=== PATIENT | male | born 1960 | race Caucasian/White ===

== ENCOUNTER 2020-02-10 12:54 | Emergency (ER) | payer MEDICARE, MEDICAID, SELFPAY ==
[2020-02-10 12:55] VITALS: BP 141/83; PULSE 92; RESP 18; TEMP 36.8; O2SAT 95; BMI 31.0
--- NOTE | 2020-02-10 13:10 | XR_ITS ---
PROCEDURE: XR PELVIS 1-2V CLINICAL INDICATION: R.hip/pelvic pain COMPARISON: No exams were available for comparison TECHNIQUE: XR Pelvis AP View FINDINGS: No fracture or dislocation is evident. No significant degenerative change other than mild sclerotic change of the SI joints. No lytic or blastic change. IMPRESSION: No acute findings. Dictated by: Dr. Jimmy Lind MD 02/10/2020 13:[address] Jimmy Lind MD in [place] 02/10/2020 13:46
--- NOTE | 2020-02-10 13:10 | XR_ITS ---
PROCEDURE: XR HIP RT 2-3V W/PELVIS CLINICAL INDICATION: injury COMPARISON: XR PELVIS 1-2V from 02/10/2020 FINDINGS: No fracture or dislocation is evident. There is mild sclerosis of the SI joints.. No lytic or blastic change. Unremarkable soft tissues. IMPRESSION: Mild bilateral sacroiliitis no acute fracture seen Dictated by: Dr. Jimmy Lind MD 02/10/2020 13:[address] Jimmy Lind MD in [place] 02/10/2020 13:46
--- NOTE | 2020-02-10 13:11 | HMH.EDGENADL ---
ED Disposition Clinical Impression: Trochanteric bursitis of right hip Disposition: Home, Self-Care Condition on Discharge: Good Instructions: DI for Acute Pain -- Adult Prescriptions: Cyclobenzaprine HCl [Cyclobenzaprine 5mg Tab] 5 mg PO Q8HP PRN #30 tab PRN Reason: pain/spasm Transmission Status: P[facility] to [id number] Ketorolac Tromethamine [Toradol 10mg tablet] 10 mg PO Q6H 5 Days #20 tab Transmission Status: Pending to [id number] Referrals: Adelso Macias II [Primary Care Provider] - - Critical Care Critical Care Time: No Attestation: On 02/10/20, the high probability of a clinically significant, sudden or life threatening deterioration of the following system(s) required my full and direct attention, intervention and personal management. The time I documented below is in addition to time spent performing reported procedures but includes the following listed in this critical care notation. Medical Decision Making - Medical Records Medical records reviewed: Yes: I reviewed the patient's medical records. - Prem Inquiry Pt receiving controlled substance: No Vital Signs: 02/10/20 12:55 Temperature 98.2 F Temperature Source Oral Pulse Rate [Right] 92 H Respiratory Rate 18 Blood Pressure [Right Arm] 141/83 H Blood Pressure Mean [Right Arm] 102 02 Sat by Pulse Oximetry 95 Orders (Tests/Meds): ED MEDICATIONS Discontinued Medications Generic Name Dose Route Start Last Admin Trade Name Freq PRN Reason Stop Dose Admin Ketorolac Tromethamine 60 mg 02/10/20 13:09 02/10/20 13:16 Toradol 60mg/2ml Vial IM 02/10/20 13:10 60 mg ONCE ONE Administration Orphenadrine Citrate 60 mg 02/10/20 13:09 02/10/20 13:15 Norflex 60mg/2ml Vial IM 02/10/20 13:10 60 mg ONCE ONE Administration ORDERS Category Date Time Status Pelvis XR 1-2 views [XR pelvis 1-2V] Stat Exams 02/10/20 13:10 Ordered XR hip RT 2-3V w/pelvis Stat Exams 02/10/20 13:10 Ordered - Radiology Data #1 Image(s): Pelvis, Hip Image Reviewed: Yes I reviewed the patient's radiology image Preliminary Findings: Normal/NAD General Adult HPI - General Chief complaint: PAIN Stated complaint: right hip pain Time Seen by Provider: 02/10/20 13:08 Mode of Arrival: Ambulatory Source of Information: Patient Limitations: No Limitations Description of Symptoms (Recalled from ER Triage Doc. by RN): C/O right hip pain x5 days after mowing hay and it was bouncing his aroun a lot. - History of Present Illness HPI narrative: This is a 59-year-old male that presents with 5-day history of right hip pain. Pain began after riding tractor for a prolonged period of time while cutting hay. Pain is sharp and does not radiate. Pain is worse whenever he first stands to ambulate and after ambulating a few feet improves. Pain is rated at 7 out of 10 in intensity at its worse. No other lower extremity edema. No calf pain. Patient also denies any chest pain or shortness of breath. No obvious injury or trauma noted by the patient. - Related Data Home Medications Medication Instructions Recorded Confirmed Atorvastatin Calcium [Lipitor 20mg 20 mg PO DAILY 09/16/18 09/16/18 Tab] Lisinopril/Hydrochlorothiazide 1 tab PO DAILY 09/16/18 09/16/18 [Lisinopril-Hctz 20-25 mg Tab] Metformin HCl [Metformin 1000mg 1,000 mg PO DAILY 09/16/18 09/16/18 Tablets] Oxycodone HCl/Acetaminophen 1 tab PO TIDP PRN 09/16/18 09/16/18 [Percocet 7.5/325mg tablet] Previous Rx's Medication Instructions Recorded Azithromycin [Zithromax 250mg 250 mg PO DIRECTED #6 tab 09/16/18 tab] Benzonatate [Tessalon Perle 100mg 100 mg PO TID #30 cap 09/16/18 Cap] Cyclobenzaprine HCl 5 mg PO Q8HP PRN #30 tab 02/10/20 [Cyclobenzaprine 5mg Tab] Ketorolac Tromethamine [Toradol 10 mg PO Q6H 5 Days #20 tab 02/10/20 10mg tablet] Allergies Allergy/AdvReac Type Severity Reaction Statu
[2020-02-10 13:37] VITALS: BP 148/87; PULSE 90; RESP 18; O2SAT 97
[2020-02-10 13:41] VITALS: BP 150/87; PULSE 81; RESP 17; TEMP 36.6; O2SAT 97
== END 2020-02-10 13:42 | disposition home or self-care (01) ==
PROVIDERS: Emergency Provider Emergency Medicine; PCP Family Medicine
DX: M70.61 Trochanteric bursitis, right hip (principal); I10 Essential (primary) hypertension; F17.290 Nicotine dependence, other tobacco product, uncomplicated; E11.9 Type 2 diabetes mellitus without complications; Z88.0 Allergy status to penicillin; Z79.84 Long term (current) use of oral hypoglycemic drugs
CPT/HCPCS: 72170; 73502; 96372; 99282

== ENCOUNTER 2020-08-02 15:09 | Emergency (ER) | payer MEDICARE, MEDICAID, SELFPAY ==
[2020-08-02 15:20] VITALS: BP 164/85; PULSE 80; RESP 14; TEMP 38.5; O2SAT 97; BMI 31.0
--- NOTE | 2020-08-02 15:41 | HMH.EDUTC ---
[facility] [facility] [place] Clinical Impression: Viral syndrome Sinusitis Qualifiers: Sinusitis location: unspecified location Chronicity: acute Recurrence: non-recurrent Qualified Code(s): J01.90 - Acute sinusitis, unspecified Disposition: Home, Self-Care Condition on Discharge: Good Instructions: DI for Sinusitis, Preventing the Spread of Coronavirus Discharge Instructions Additional Instructions: Drink plenty of fluids. Take tylenol for pain or fever. Return if you begin to have difficulty breathing. Follow up with your regular doctor. GO TO THE ER FOR ANY WORSENING SYMPTOMS Prescriptions: Azithromycin [Z-Andrea 250mg Tab*] 250 mg PO UD DOSE PK #6 tab Transmission Status: [id number] Referrals: Jaron Paz [Primary Care Provider] - Time of Disposition: 16:36 Medical Decision Making - Medical Records Medical records reviewed: No: I reviewed the patient's medical records. - Prem Inquiry Pt receiving controlled substance: No Vital Signs: 08/02/20 15:20 08/02/20 16:41 Temperature 101.3 F H 101.3 F H Temperature Source Oral Pulse Rate 80 Pulse Rate [Right Brachial] 80 Respiratory Rate 14 14 Blood Pressure 164/85 H Blood Pressure [Right Arm] 164/85 H Blood Pressure Mean [Right Arm] 111 Blood Pressure Source [Right Arm] Automatic Cuff Blood Pressure Position [Right Arm] Sitting 02 Sat by Pulse Oximetry 97 Oxygen Delivery Method Room Air - Lab Data Lab Results 08/02/20 15:42: Influenza Type A Ag Negative, Influenza Type B Ag Negative Orders (Tests/Meds): ED MEDICATIONS Discontinued Medications Generic Name Dose Route Start Last Admin Trade Name Michael PRN Reason Stop Dose Admin Acetaminophen 1,000 mg 08/02/20 15:42 08/02/20 15:50 Acetaminophen 500mg Tab PO 08/02/20 15:43 1,000 mg ONCE ONE Administration [facility] [facility] [place] - General Stated complaint: Achy, sore throat, cough(exposure) Time Seen by Provider: 08/02/20 15:41 - History of Present Illness Provider Complaint: He c/o 4 days of feeling bad, having a cough and having body aches. He came in for a covid-19 test. - Related Data Home Medications Medication Instructions Recorded Confirmed Atorvastatin Calcium [Lipitor 20mg 20 mg PO DAILY 09/16/18 09/16/18 Tab] Lisinopril/Hydrochlorothiazide 1 tab PO DAILY 09/16/18 09/16/18 [Lisinopril-Hctz 20-25 mg Tab] Metformin HCl [Metformin 1000mg 1,000 mg PO DAILY 09/16/18 09/16/18 Tablets] Oxycodone HCl/Acetaminophen 1 tab PO TIDP PRN 09/16/18 09/16/18 [Percocet 7.5/325mg tablet] Previous Rx's Medication Instructions Recorded Azithromycin [Zithromax 250mg 250 mg PO DIRECTED #6 tab 09/16/18 tab] Benzonatate [Tessalon Perle 100mg 100 mg PO TID #30 cap 09/16/18 Cap] Cyclobenzaprine HCl 5 mg PO Q8HP PRN #30 tab 02/10/20 [Cyclobenzaprine 5mg Tab] Ketorolac Tromethamine [Toradol 10 mg PO Q6H 5 Days #20 tab 02/10/20 10mg tablet] Azithromycin [Z-Andrea 250mg Tab*] 250 mg PO UD DOSE PK #6 tab 08/02/20 Allergies Allergy/AdvReac Type Severity Reaction Status Date / Time Penicillins Allergy Verified 08/02/20 15:42 [facility] History - Hepatitis A Screen Attestation statement:: This patient has been screened for Hepatitis A risk factors. I have reviewed the patient's past medical history: Yes Medical History: Reports:: Diabetes Mellitus Type 2 Denies:: Cancer, Diabetes Mellitus Type 1, MRSA Amputation: No - Social History Smoking Status: Never smoker Tobacco Type: smokeless tobacco # Packs/Day (cigarettes): 0 Alcohol Intake: never Occupational Status: other ROS Obtained: Yes All systems reviewed & no additional complaints - Constitutional Constitutional: Reports system reviewed and no additional complaints, except as docu - Eyes Eyes: Reports system reviewed and no additional complaints, except as docu - ENT Ears, Nose, Mouth, and Throat: Reports system reviewed and no additio
[2020-08-02 16:06] LABS: UTC Influenza A Antigen Negative (Negative)
[2020-08-02 16:07] LABS: UTC Influenza B Antigen Negative (Negative)
[2020-08-02 16:41] VITALS: BP 164/85; PULSE 80; RESP 14; TEMP 38.5; O2SAT 97
--- NOTE | 2020-08-03 13:46 | PC.NURSE ---
patient informed of positive covid results
== END 2020-08-02 16:42 | disposition home or self-care (01) ==
PROVIDERS: Emergency Provider Nurse Practitioner Family; PCP Family Medicine
DX: U07.1 COVID-19 (principal); J01.90 Acute sinusitis, unspecified; I10 Essential (primary) hypertension; E78.5 Hyperlipidemia, unspecified; E11.9 Type 2 diabetes mellitus without complications; Z79.899 Other long term (current) drug therapy
CPT/HCPCS: G0463; 87804; 99202; U0003

== ENCOUNTER 2023-07-16 10:47 | Emergency (ER) | payer MEDICARE, MEDICAID, SELFPAY ==
[2023-07-16 11:15] VITALS: BP 122/80; PULSE 80; RESP 20; TEMP 37.3; O2SAT 97; BMI 32.5
--- NOTE | 2023-07-16 11:18 | EXP.UTC ---
Discharge Plan Disposition Patient Disposition: Home, Self-Care Condition: Good Prescriptions Prescriptions: New benzonatate [benzonatate] 100 mg capsule 100 mg PO TIDP PRN (Reason: Cough) Qty: 30 0RF methylprednisolone 4 mg Tablets,Dose Pack 4 mg PO DIRECTED 6 Days Qty: 21 0RF Rx Instructions: Take 1 pack as directed for 6 days guaifenesin [Mucinex] 600 mg tablet extended release 12hr 600 - 1,200 mg PO BIDP PRN (Reason: Congestion) Qty: 30 0RF azithromycin [Zithromax] 250 mg tablet 250 mg PO UD DOSE PK Qty: 6 0RF Rx Instructions: Take two (2) tablets today, then one (1) tablet days #2 thru #5 No Action atorvastatin 20 mg tablet 20 mg PO HS Patient Comments: TAKE 1 TABLET BY MOUTH EVERY DAY lisinopril-hydrochlorothiazide 20-25 mg tablet 1 tab PO DAILY Patient Comments: TAKE 1 TABLET BY MOUTH DAILY. MUST MAKE APPOINTMENT FOR ANY MORE REFILLS oxycodone-acetaminophen 7.5-325 mg tablet 1 tab PO Q8H Patient Comments: TAKE 1 TABLET BY MOUTH EVERY 8 HOURS FOR 28 DAYS metformin 500 mg tablet extended release 24 hr 500 mg PO BID Patient Comments: TAKE 2 TABLETS BY MOUTH TWICE A DAY WITH MEALS pregabalin 100 mg capsule 100 mg PO BID Patient Comments: TAKE 1 CAPSULE BY MOUTH TWICE A DAY 28 DAYS Ozempic 0.25 mg or 0.5 mg (2 mg/3 mL) pen injector 0.25 mg SQ WEEKLY Patient Comments: INJECT 0.5 MG SUBCUTANEOUSLY ONCE A WEEK. Referrals Follow up/Referrals: Jaron Paz [Primary Care Provider] - See instructions Activity Restrictions/Add. Instructions Additional Instructions/Restrictions: Drink plenty of fluids. Take tylenol or ibuprofen for pain or fever. Take the medications as directed. Follow up with your regular doctor. GO TO THE ER FOR ANY WORSENING SYMPTOMS Clinical Impressions Clinical Impression: Bronchitis, Sinusitis Stand Alone Forms Stand Alone Forms: Work/School Release Instructions Patient Instructions: DI for Sinusitis, DI for Acute Bronchitis Discharge ED Provider: Yonny Skinner [facility] General Stated complaint: exposed to flu runny nose,cough, Time Seen by Provider: 07/16/23 11:18 History of Present Illness Provider Complaint: He states that for the past 4 days he has had worsening chest and sinus congestion. Related Data Home Medications Medication Instructions Recorded Confirmed atorvastatin 20 mg tablet 20 mg PO HS 07/16/23 07/16/23 lisinopril 20 1 tab PO DAILY 07/16/23 07/16/23 mg-hydrochlorothiazide 25 mg tablet metformin 500 mg tablet,extended 500 mg PO BID 07/16/23 07/16/23 release 24 hr oxycodone-acetaminophen 7.5 mg-325 1 tab PO Q8H 07/16/23 07/16/23 mg tablet pregabalin 100 mg capsule 100 mg PO BID 07/16/23 07/16/23 semaglutide 0.25 mg or 0.5 mg (2 0.25 mg SQ WEEKLY 07/16/23 07/16/23 mg/3 mL) subcutaneous pen injector (Ozempic) Previous Rx's Medication Instructions Recorded azithromycin 250 mg tablet 250 mg PO UD DOSE PK #6 tabs 07/16/23 (Zithromax) benzonatate 100 mg capsule 100 mg PO TIDP PRN Cough #30 caps 07/16/23 guaifenesin 600 mg tablet, 600 - 1,200 mg PO BIDP PRN 07/16/23 extended release 12 hr (Mucinex) Congestion #30 tabs methylprednisolone 4 mg tablets in 4 mg PO DIRECTED 6 days #21 tabs 07/16/23 a dose pack Allergies Allergy/AdvReac Type Severity Reaction Status Date / Time Penicillins Allergy Verified 08/02/20 15:42 [facility] Disclaimer: The information contained in this section may have been updated after the patient was seen, as this information can be updated by other users. Medical History (Updated 07/16/23 @ 11:52 by Yonny Skinner APRN) Diabetes mellitus, type 2 Hyperlipidemia Hypertension Migraine Social History Smoking Status: Never smoker alcohol intake: never current occupational status: other Travel in the last 8 weeks: None ROS Obtained: Yes All systems reviewed & no additional complaints except as documented Constitutional Constitutional: Reports chills and Reports fever(s) Eyes Eyes: Denies eye discharge ENT Ears, Nose, Mouth, and Throat: Reports as per HPI Cardiovascular Cardiovascular: Denies chest pain Respiratory Respiratory: Denies chest congestion and Reports cough Gastrointestinal Gastrointestingal: Reports nausea; Denies abdominal pain, constipation, cramping, diarrhea or vomiting Musculoskeletal Musculoskeletal: Denies arthralgias Integumentary/Breasts Skin/Breast: Denies rash Neurologic Neurologic: Denies paresthesias Physical Exam General General appearance: alert and in no apparent distress Eye Eye exam: Present normal appearance, PERRL and EOMI ENT ENT exam: Present mucous membranes moist and normal external ear exam Expanded ENT Exam External ear exam: Present normal external inspection TM/Canal exam: Bilateral TM: erythema and bulging Nose exam: Absent sinus tenderness Nasal speculum exam: Bilateral: normal Mouth exam: Present normal external inspection; Absent drooling Teeth exam: Present normal inspection Throat exam: Present tonsillar erythema and tonsillomegaly Neck Neck exam: Present normal inspection, full ROM and trachea midline; Absent tenderness, lymphadenopathy or thyromegaly Chest Chest inspection: Present normal inspection and symmetric chest wall rise; Absent tenderness or rash Respiratory Respiratory exam: Present normal lung sounds bilaterally; Absent respiratory distress, wheezes, stridor or accessory muscle use Cardiovascular Cardiovascular exam: Present regular rate, normal rhythm and normal heart sounds Abdominal Exam Abdominal exam: Present soft; Absent distention, tenderness, guarding, rebound or rigidity Extremities Exam Extremities exam: Present normal inspection, full ROM and normal capillary refill; Absent tenderness or calf tenderness Back Exam Back exam: Present normal inspection and full ROM; Absent tenderness Neurological Exam Neurological exam: Present alert and oriented X3 Psychiatric Psychiatric exam: Present normal affect and normal mood Skin Skin exam: Present warm, dry, intact and normal color Lymphatic Lymphatic Findings: no adenopathy Medical Decision Making Medical Records Medical records reviewed: No I reviewed the patient's medical records. Prem Inquiry Pt receiving controlled substance: No Lab Data Lab results reviewed: Yes I reviewed the patient's lab results.
[2023-07-16 11:33] LABS: UTC Strep Screen (Rapid) Negative (Negative)
[2023-07-16 11:34] LABS: UTC Influenza A Antigen Negative (Negative); UTC Influenza B Antigen Negative (Negative)
[2023-07-16 11:52] VITALS: BP 122/80; PULSE 80; RESP 20; TEMP 37.3; O2SAT 97
== END 2023-07-16 11:57 | disposition home or self-care (01) ==
PROVIDERS: Emergency Provider Nurse Practitioner Family; PCP Family Medicine
DX: J20.9 Acute bronchitis, unspecified (principal); J01.90 Acute sinusitis, unspecified; R09.89 Other specified symptoms and signs involving the circulatory and respiratory systems; R05.9 Cough, unspecified; R09.81 Nasal congestion; E11.9 Type 2 diabetes mellitus without complications; E78.5 Hyperlipidemia, unspecified; I10 Essential (primary) hypertension; Z79.84 Long term (current) use of oral hypoglycemic drugs; Z79.85 Long-term (current) use of injectable non-insulin antidiabetic drugs; Z20.828 Contact with and (suspected) exposure to other viral communicable diseases
CPT/HCPCS: 87804; 87880; 99212; 99214; G0463

== ENCOUNTER 2024-11-16 09:55 | Outpatient (CLI) | payer MEDICARE, MEDICAID, SELFPAY ==
--- NOTE | 2024-11-16 10:05 | XR_ITS ---
FINAL REPORT CLINICAL HISTORY: PAIN IN UNSPECIFIED HIP states pain in bilateral hips that radiates down his legs COMPARISON: None FINDINGS: LEFT HIP: Two views of the left hip demonstrate no acute fracture or dislocation. The joint spaces appear normal. The visualized bony structures are well aligned. No soft tissue abnormality is seen. IMPRESSION: No acute bony abnormality. Reviewed, Interpreted and Dictated by Vitaliy Lux MD Transcribed by Reanna Bell Authenticated and [facility]
--- NOTE | 2024-11-16 10:05 | XR_ITS ---
FINAL REPORT CLINICAL HISTORY: states pain in bilateral hips that radiates down his legs COMPARISON: None FINDINGS: RIGHT HIP 3 views of the right hip demonstrate no acute fracture or dislocation. The joint spaces appear normal. The visualized bony structures are well aligned. No soft tissue abnormality is seen. IMPRESSION: No acute bony abnormality. Reviewed, Interpreted and Dictated by Vitaliy Lux MD Transcribed by Reanna Bell Authenticated and [facility]
== END 2024-11-16 23:59 | disposition home or self-care (01) ==
LOC: RAD 09:59
PROVIDERS: PCP Family Medicine; Visit Provider Pain Medicine Interventional Pain Medicine
DX: M25.551 Pain in right hip (principal); M25.552 Pain in left hip
CPT/HCPCS: 73502